=== PATIENT | female | born 1980 | race Two or more races ===

== ENCOUNTER 2023-09-18 06:38 | Emergency (ER) | payer OTHER ==
[~2023-09-18] VITALS: Ht 167.6 cm; Wt 91.0 kg
[2023-09-18 08:00] VITALS: BP 185/101; PULSE 98; RESP 18; TEMP 98; O2SAT 98
[2023-09-18] MEDS: KETOROLAC TROMETH 30 MG/ML 1ML VIAL IM ONE (08:30)
[2023-09-18] MEDS ORDERED: MELO7.5T7 PO (09:13)
[2023-09-18] MEDS ORDERED: ZOFR4T PO (09:34)
== END 2023-09-18 11:00 | disposition home or self-care (01) ==
LOC: ER 06:38 → EDBD 06:38 → ER 09:48
DX: M79.10 Myalgia, unspecified site (principal); R51.9 Headache, unspecified; Z88.8 Allergy status to other drugs, medicaments and biological substances; Z79.899 Other long term (current) drug therapy; V98.8XXA Other specified transport accidents, initial encounter; Y93.89 Activity, other specified; Y92.89 Other specified places as the place of occurrence of the external cause; Y99.8 Other external cause status
CPT/HCPCS: 70450; 71045; 96372; 99285; J1885